=== PATIENT | female | born 1945 | race Hispanic/Latino ===

== ENCOUNTER 2017-10-18 20:50 | Inpatient (IN) | payer MEDICARE ==
[~2017-10-18] VITALS: Ht 144.8 cm; Wt 60.3 kg
[~2017-10-18 20:50] MED LIST: BENICAR20 MG PO; LEVOTHYROXINE75 MCG PO
[2017-10-18 21:47] LABS: BASOPHILS % 0.3 % (0.0-1.0); EOSINOPHILS # (AUTO) 0.1 (0.0-0.4); HEMATOCRIT 27.6 % (34.2-44.1); HEMOGLOBIN 9.3 g/dL (12.0-16.0); LYMPHOCYTES # (AUTO) 2.4 (1.0-3.2); LYMPHOCYTES % 34.7 % (18.0-39.1); MEAN CORPUSCULAR HEMOGLOBIN 31.2 pg (28-32); MEAN CORPUSCULAR HGB CONC 33.7 g/dL (31-35); MEAN CORPUSCULAR VOLUME 92.6 fL (81-99); MONOCYTES # (AUTO) 0.3 (0.2-0.8); MONOCYTES % 4.6 % (4.4-11.3); NEUTROPHILS % 59.3 % (38.7-80.0); PLATELET COUNT 276 x10e3/uL (140-360); RED BLOOD COUNT 2.98 x10e6/uL (3.6-5.1); RED CELL DISTRIBUTION WIDTH 13.9 % (11.7-14.4)
[2017-10-18 21:57] LABS: INR 1.13; PARTIAL THROMBOPLASTIN TIME 29.4 seconds (23.8-35.5); PROTHROMBIN TIME 13.6 seconds (11.9-14.5)
[2017-10-18 22:04] LABS: ALANINE AMINOTRANSFERASE 20 IU/L (0-55); ALBUMIN 3.5 g/dL (3.5-5.0); ALBUMIN/GLOBULIN RATIO 1.3 (0.8-2.0); ALKALINE PHOSPHATASE 75 IU/L (40-150); ANION GAP 11.6 mmol/L (8-16); BLOOD UREA NITROGEN 8 mg/dL (7-26); BUN/CREATININE RATIO 11 (6-25); CALCIUM 9.6 mg/dL (8.4-10.2); CARBON DIOXIDE 23 mmol/L (22-29); CHLORIDE 109 mmol/L (98-107); EST GLOMERULAR FILTRATION RATE > 60 ML/MIN (60-); GLUCOSE 147 mg/dL (74-118); POTASSIUM 3.6 mmol/L (3.5-5.1); SODIUM 140 mmol/L (136-145)
[2017-10-19] MEDS ORDERED: ONDANSETRON HCL INJ 2 MG/ML VIAL IV PRN
[2017-10-19 01:50] VITALS: BP 143/71
[2017-10-19] MEDS: SODIUM CHLORIDE 0.9% 1000ML 1,000 ML IV SCH ×3 (02:05→17:05)
[2017-10-19 04:00] VITALS: BP 131/61
[2017-10-19 06:16] LABS: HEMATOCRIT 24.3 % (34.2-44.1); HEMOGLOBIN 8.3 g/dL (12.0-16.0)
[2017-10-19 08:27] VITALS: BP 133/62
[2017-10-19] MEDS ORDERED: PANTOPRAZOLE 40 MG 10ML VIAL IV SCH (09:00)
[2017-10-19 11:49] LABS: HEMOGLOBIN 7.9 g/dL (12.0-16.0)
[2017-10-19 12:30] VITALS: BP 137/66
[2017-10-19 17:05] VITALS: BP 160/70
[2017-10-19 18:30] LABS: HEMATOCRIT 24.8 % (34.2-44.1); HEMOGLOBIN 8.5 g/dL (12.0-16.0)
[2017-10-19 20:00] VITALS: BP 146/67
[2017-10-20] VITALS (8 sets, daily range): BP systolic 122–167; BP diastolic 64–81
[2017-10-20 02:22] LABS: HEMOGLOBIN 7.6 g/dL (12.0-16.0)
[2017-10-20 06:02] LABS: BASOPHILS % 0.4 % (0.0-1.0); EOSINOPHILS # (AUTO) 0.1 (0.0-0.4); EOSINOPHILS % 2.6 % (0.0-6.0); HEMATOCRIT 23.1 % (34.2-44.1); HEMOGLOBIN 7.7 g/dL (12.0-16.0); LYMPHOCYTES # (AUTO) 2.1 (1.0-3.2); LYMPHOCYTES % 45.6 % (18.0-39.1); MEAN CORPUSCULAR HEMOGLOBIN 31.3 pg (28-32); MEAN CORPUSCULAR HGB CONC 33.3 g/dL (31-35); MEAN CORPUSCULAR VOLUME 93.9 fL (81-99); MONOCYTES # (AUTO) 0.3 (0.2-0.8); MONOCYTES % 5.8 % (4.4-11.3); NEUTROPHILS # (AUTO) 2.1 (2.1-6.9); NEUTROPHILS % 45.4 % (38.7-80.0); PLATELET COUNT 220 x10e3/uL (140-360); RED BLOOD COUNT 2.46 x10e6/uL (3.6-5.1); RED CELL DISTRIBUTION WIDTH 13.8 % (11.7-14.4)
[2017-10-20] MEDS: LEVOTHYROXINE SODIUM 75 MCG TAB PO SCH (06:05)
[2017-10-20] MEDS: SODIUM CHLORIDE 0.9% 1000ML 1,000 ML IV SCH ×2 (06:05→16:54)
[2017-10-20 06:40] LABS: ANION GAP 8.7 mmol/L (8-16); BLOOD UREA NITROGEN 5 mg/dL (7-26); BUN/CREATININE RATIO 8 (6-25); CALCIUM 8.3 mg/dL (8.4-10.2); CARBON DIOXIDE 26 mmol/L (22-29); CHLORIDE 112 mmol/L (98-107); CREATININE, SERUM 0.61 mg/dL (0.57-1.11); EST GLOMERULAR FILTRATION RATE > 60 ML/MIN (60-); GLUCOSE 93 mg/dL (74-118); POTASSIUM 3.7 mmol/L (3.5-5.1); SODIUM 143 mmol/L (136-145)
--- NOTE | 2017-10-20 16:52 | Diagnostic Imaging Report ---
Tagged-RBC GI Bleed Study Clinical information: 72-year-old female with rectal bleeding/blood in stool. Discussion: The patient's own red blood cells were labeled with 27.5 mCi of technetium-99m pertechnetate using the in vitro method (UltraTag). Dynamic images of the abdomen were obtained through 60 minutes. Distribution of tracer activity appears physiologic throughout the abdomen. No abnormal accumulation of tracer is seen within the gastrointestinal lumen. Impression: No scan evidence of active gastrointestinal bleeding at this time. Signed by: Dr. Lorrie Rivera M.D. on 10/20/2017 4:48 PM
[2017-10-20 17:49] LABS: BASOPHILS % 0.4 % (0.0-1.0); EOSINOPHILS # (AUTO) 0.1 (0.0-0.4); EOSINOPHILS % 1.3 % (0.0-6.0); HEMATOCRIT 25.1 % (34.2-44.1); HEMOGLOBIN 8.5 g/dL (12.0-16.0); LYMPHOCYTES # (AUTO) 2.4 (1.0-3.2); LYMPHOCYTES % 36.1 % (18.0-39.1); MEAN CORPUSCULAR HEMOGLOBIN 31.4 pg (28-32); MEAN CORPUSCULAR HGB CONC 33.9 g/dL (31-35); MEAN CORPUSCULAR VOLUME 92.6 fL (81-99); MONOCYTES # (AUTO) 0.2 (0.2-0.8); MONOCYTES % 3.1 % (4.4-11.3); NEUTROPHILS % 58.8 % (38.7-80.0); PLATELET COUNT 258 x10e3/uL (140-360); RED BLOOD COUNT 2.71 x10e6/uL (3.6-5.1); RED CELL DISTRIBUTION WIDTH 13.9 % (11.7-14.4)
[2017-10-20] MEDS ORDERED: PEG (High)/E-LYTE SOLN 4,000 ML BTL PO ONE (22:00)
[2017-10-21] VITALS: BP 157/67
[2017-10-21] MEDS: SODIUM CHLORIDE 0.9% 1000ML 1,000 ML IV SCH ×3 (00:56→18:22)
[2017-10-21 02:15] LABS: HEMATOCRIT 24.5 % (34.2-44.1); HEMOGLOBIN 8.4 g/dL (12.0-16.0)
[2017-10-21 04:00] VITALS: BP 155/60
[2017-10-21] MEDS: LEVOTHYROXINE SODIUM 75 MCG TAB PO SCH (05:22)
[2017-10-21 06:22] LABS: HEMATOCRIT 23.4 % (34.2-44.1); HEMOGLOBIN 7.9 g/dL (12.0-16.0)
[2017-10-21 07:57] VITALS: BP 131/78
[2017-10-21 11:59] VITALS: BP 149/72
[2017-10-21] MEDS ORDERED: HYOSCYAMINE SULFATE 0.5 MG/ML AMP ONE (16:04)
[2017-10-21] MEDS ORDERED: PROPOFOL IV EMULSION 10 MG/ML 50 ML VIAL ONE (16:04)
[2017-10-21] MEDS ORDERED: LIDOCAINE HCL 2% LOCAL INJ 5 ML SDV VIAL INJ ONE (16:04)
--- NOTE | 2017-10-21 17:10 | Operative Report ---
DATE OF PROCEDURE: October 21, 2017 REFERRING PHYSICIAN: Dr. Marshall. PROCEDURE PERFORMED: Colonoscopy. INDICATIONS FOR COLONOSCOPY: Recurrent rectal bleeding. MEDICATION: Patient was done under MAC. Please see anesthesiologist's note. PROCEDURE: With the patient in the left lateral decubitus position, the flexible fiberoptic Olympus colonoscope was inserted into the rectum with ease and advanced all the way to the cecum. The mucosa overlying the cecum appeared to be within normal limits. The previously hemoclipped polypectomy site appeared intact with the two hemoclips in good position. There was no active bleeding or stigmata of recent hemorrhage. Diverticular disease was noted to involve the ascending and some of the transverse colon, and there was no active bleeding. The left colon overall grossly appeared to be within normal limits. The scope was then retroflexed into the distal rectum and small internal hemorrhoids were noted, none of which was actively bleeding. The scope was then straightened out. The scope was subsequently withdrawn. Patient tolerated the procedure well. IMPRESSION: 1. Polypectomy site clean. Basically no evidence of active bleeding or stigmata of recent hemorrhage. 2. Diverticulosis. 3. Internal hemorrhoids. PLAN: Advance diet to a GI soft. Follow H\T\H. Job#: [id number] EV cc: BEN MARSHALL MD
[2017-10-21 20:00] VITALS: BP 119/63
[2017-10-21 20:41] LABS: HEMATOCRIT 23.9 % (34.2-44.1); HEMOGLOBIN 8.2 g/dL (12.0-16.0)
[2017-10-22] VITALS (7 sets, daily range): BP systolic 117–135; BP diastolic 56–73
[2017-10-22] MEDS: LEVOTHYROXINE SODIUM 75 MCG TAB PO SCH (05:46)
[2017-10-22 06:10] LABS: BASOPHILS % 0.3 % (0.0-1.0); EOSINOPHILS # (AUTO) 0.2 (0.0-0.4); EOSINOPHILS % 3.3 % (0.0-6.0); HEMATOCRIT 23.1 % (34.2-44.1); HEMOGLOBIN 7.7 g/dL (12.0-16.0); LYMPHOCYTES # (AUTO) 1.9 (1.0-3.2); LYMPHOCYTES % 30.9 % (18.0-39.1); MEAN CORPUSCULAR HEMOGLOBIN 31.3 pg (28-32); MEAN CORPUSCULAR HGB CONC 33.3 g/dL (31-35); MEAN CORPUSCULAR VOLUME 93.9 fL (81-99); MONOCYTES # (AUTO) 0.3 (0.2-0.8); MONOCYTES % 5.4 % (4.4-11.3); NEUTROPHILS # (AUTO) 3.6 (2.1-6.9); NEUTROPHILS % 59.8 % (38.7-80.0); PLATELET COUNT 258 x10e3/uL (140-360); RED BLOOD COUNT 2.46 x10e6/uL (3.6-5.1); RED CELL DISTRIBUTION WIDTH 14.1 % (11.7-14.4)
[2017-10-22 06:36] LABS: ANION GAP 9.5 mmol/L (8-16); BLOOD UREA NITROGEN 6 mg/dL (7-26); BUN/CREATININE RATIO 9 (6-25); CALCIUM 8.6 mg/dL (8.4-10.2); CARBON DIOXIDE 25 mmol/L (22-29); CHLORIDE 109 mmol/L (98-107); CREATININE, SERUM 0.65 mg/dL (0.57-1.11); EST GLOMERULAR FILTRATION RATE > 60 ML/MIN (60-); GLUCOSE 93 mg/dL (74-118); POTASSIUM 3.5 mmol/L (3.5-5.1); SODIUM 140 mmol/L (136-145)
[2017-10-22] MEDS: SODIUM CHLORIDE 0.9% 1000ML 1,000 ML IV SCH (06:58)
[2017-10-22] MEDS: OLMESARTAN 20 MG TAB PO SCH (08:42)
[2017-10-23] VITALS: BP 110/59
[2017-10-23 00:12] LABS: BASOPHILS % 0.3 % (0.0-1.0); EOSINOPHILS # (AUTO) 0.1 (0.0-0.4); EOSINOPHILS % 2.3 % (0.0-6.0); HEMATOCRIT 23.4 % (34.2-44.1); LYMPHOCYTES # (AUTO) 2.3 (1.0-3.2); LYMPHOCYTES % 37.7 % (18.0-39.1); MEAN CORPUSCULAR HEMOGLOBIN 31.3 pg (28-32); MEAN CORPUSCULAR HGB CONC 34.2 g/dL (31-35); MEAN CORPUSCULAR VOLUME 91.4 fL (81-99); MONOCYTES # (AUTO) 0.3 (0.2-0.8); MONOCYTES % 5.1 % (4.4-11.3); NEUTROPHILS # (AUTO) 3.3 (2.1-6.9); NEUTROPHILS % 54.4 % (38.7-80.0); PLATELET COUNT 275 x10e3/uL (140-360); RED BLOOD COUNT 2.56 x10e6/uL (3.6-5.1); RED CELL DISTRIBUTION WIDTH 14.2 % (11.7-14.4)
[2017-10-23 04:00] VITALS: BP 139/65
[2017-10-23] MEDS: LEVOTHYROXINE SODIUM 75 MCG TAB PO SCH (06:01)
[2017-10-23 08:07] VITALS: BP 136/70
[2017-10-23 09:10] VITALS: BP 141/69
[2017-10-23] MEDS: OLMESARTAN 20 MG TAB PO SCH (09:10)
[2017-10-23 11:59] VITALS: BP 141/69
--- NOTE | 2017-10-23 13:41 | Discharge Summary ---
PRIMARY CARE PHYSICIAN: Dr. Melissa Chaney. FINAL DIAGNOSIS: Presumed diverticular bleed. SECONDARY DIAGNOSES 1. Hypertension. 2. Hypothyroidism. TRAINING INSTRUCTOR: Dr. Looney, GI. PROCEDURES/STUDIES PERFORMED: Bleeding scan which was negative. Colonoscopy which a negative as well. HISTORY: Per H\T\P. HOSPITAL COURSE: The patient was admitted. Her hemoglobin did drop a little bit, however, remained stable. At the time of discharge, her hemoglobin is 8. Bleeding scan was done which was negative, and subsequently, colonoscopy was done. No bleeding at the site of the recent polypectomy sites. Therefore, presumed this is again another diverticular bleed. The patient was watched for one extra day. No rectal bleeding, tolerating soft diet, has had normal BM. Therefore, the patient was deemed stable for discharge. The patient was seen and examined today. Took 32 minutes total to discharge this patient. I have answered all the questions from the patient and also the daughter at the bedside. CONDITION ON DISCHARGE: Stable. DISCHARGE MEDICATIONS: Please see medication reconciliation form. BEN MARSHALL M.D. Job#: [id number] GH cc:MELISSA CHANEY MD
== END 2017-10-23 14:06 | disposition home or self-care (01) | DRG 379 ==
LOC: ER 20:50 → ERHOLD 10-19 00:13 → MED/SURG3 10-19 01:34
PROVIDERS: ADMIT Internal Medicine; ATTEND Internal Medicine
PROC: 0DBL8ZX Excision of Transverse Colon, Via Natural or Artificial Opening Endoscopic, Diagnostic (ICD-10-PCS; 2017-10-21)
PROC: 0DBK8ZX Excision of Ascending Colon, Via Natural or Artificial Opening Endoscopic, Diagnostic (ICD-10-PCS; principal; 2017-10-21 16:00)
DX: K57.31 Diverticulosis of large intestine without perforation or abscess with bleeding (principal); D12.2 Benign neoplasm of ascending colon; D12.3 Benign neoplasm of transverse colon; E03.9 Hypothyroidism, unspecified; D64.9 Anemia, unspecified
CPT/HCPCS: 36415; 45378; 78278; 80048; 80053; 85014; 85018; 85025; 85610; 85730; 86850; 86900; 99284; A9512; J1980; J2001; J7030

== ENCOUNTER → 2018-02-14 | Day surgery (SDC) | payer MEDICARE ==
[2018-02-11 11:10] LABS: BASOPHILS # (AUTO) 0.1 (0.0-0.1); BASOPHILS % 1.2 % (0.0-1.0); EOSINOPHILS # (AUTO) 0.1 (0.0-0.4); EOSINOPHILS % 1.2 % (0.0-6.0); HEMATOCRIT 37.3 % (34.2-44.1); HEMOGLOBIN 11.9 g/dL (12.0-16.0); LYMPHOCYTES # (AUTO) 2.2 (1.0-3.2); LYMPHOCYTES % 32.2 % (18.0-39.1); MEAN CORPUSCULAR HEMOGLOBIN 26.2 pg (28-32); MEAN CORPUSCULAR HGB CONC 31.9 g/dL (31-35); MEAN CORPUSCULAR VOLUME 82.2 fL (81-99); MONOCYTES # (AUTO) 0.4 (0.2-0.8); MONOCYTES % 5.9 % (4.4-11.3); NEUTROPHILS % 59.2 % (38.7-80.0); PLATELET COUNT 334 x10e3/uL (140-360); RED BLOOD COUNT 4.54 x10e6/uL (3.6-5.1); RED CELL DISTRIBUTION WIDTH 16.9 % (11.7-14.4)
--- NOTE | 2018-02-11 11:11 | Diagnostic Imaging Report ---
EXAMINATION: PA and lateral views of the chest. COMPARISON: None CLINICAL HISTORY: Preoperative, hernia DISCUSSION: Lines/tubes: None. Lungs: The lungs are well inflated and clear. No pneumonia or pulmonary edema. Pleura: No pleural effusion or pneumothorax. Heart and mediastinum: The cardiomediastinal silhouette is normal. Bones and soft tissues: No acute bony abnormalities. IMPRESSION: No acute cardiopulmonary abnormalities. Signed by: Dr. Duran Rivero M.D. on 02/11/2018 11:08 AM
[2018-02-11 11:34] LABS: ANION GAP 13.4 mmol/L (8-16); BLOOD UREA NITROGEN 13 mg/dL (7-26); BUN/CREATININE RATIO 19 (6-25); CALCIUM 10.1 mg/dL (8.4-10.2); CARBON DIOXIDE 26 mmol/L (22-29); CHLORIDE 107 mmol/L (98-107); CREATININE, SERUM 0.69 mg/dL (0.57-1.11); EST GLOMERULAR FILTRATION RATE > 60 ML/MIN (60-); GLUCOSE 100 mg/dL (74-118); POTASSIUM 4.4 mmol/L (3.5-5.1); SODIUM 142 mmol/L (136-145)
[~2018-02-14] MED LIST changes: +BUPIVACAINE 0.25%/EPI 30ML SDV INJ ONE; +CALCIUM ACETAT667 MG PO; +CEFAZOLIN SOD 1 GM VIAL ONE; +DEXAMETHASONE SOD PHOS INJ 4 MG/ML VIAL ONE; +FENTANYL CITRATE/PF 100MCG/2 ML INJ ONE; +GLYCOPYRROLATE INJ 1MG/ 5 ML SYR ONE; +LIDOCAINE HCL 2% LOCAL INJ 5 ML SDV VIAL INJ ONE; +MIDAZOLAM HCL 2 MG/2 ML VIAL ONE; +ONDANSETRON HCL INJ 2 MG/ML VIAL ONE; +PROPOFOL IV EMULSION 10 MG/ML 20 ML VIAL ONE; +ROCURONIUM BROMIDE 10 MG/ML 5ML VIAL ONE; +SEVOFLURANE INHAL SOLN 250 ML PEN BTL ONE
[2018-02-14 10:15] VITALS: BP 149/76
--- NOTE | 2018-02-14 10:53 | Operative Report ---
DATE OF PROCEDURE: February 14, 2018 PREOPERATIVE DIAGNOSIS: Ventral hernia. POSTOPERATIVE DIAGNOSIS: Ventral hernia. OPERATION PERFORMED: Repair of incarcerated ventral hernia with mesh. ANESTHESIA: General. COMPLICATIONS: None. ESTIMATED BLOOD LOSS: Minimal. DESCRIPTION OF PROCEDURE: With the patient lying in bed in the supine position under good general endotracheal anesthesia, the abdomen was prepped with Betadine solution and draped in the usual manner. An upper midline incision was made. It was carried down through the subcutaneous tissue, and immediately a large ventral hernia sac was encountered, which was slowly and carefully all the way down to its neck. The fascia was then cleared all the way around. The hernia sac was then opened, and some of the contents were reduced back to the intra-abdominal cavity. The excess of the hernia sac was then resected. All bleeding points were either electrocoagulated or ligated with 2-0 Vicryl. After this was done, the area was examined. There was some weakness of the midline fascia, so we decided that mesh would be needed. A medium sized Ventralex patch was then placed through the hernia sac and deployed without any difficulty. The mesh was then anchored using interrupted sutures of [address] the way around. The defect was then closed at the midline transversely using interrupted sutures of 0 Ethibond anchoring the mesh on the way out. This gave us a satisfactory closure without any tension. The whole area was thoroughly irrigated. Perfect hemostasis was ascertained. All layers were infiltrated on the way out with a solution of 0.25% Marcaine. Subcutaneous tissue was approximated with 3-0 Vicryl and the skin was closed with clips. A dressing was applied. The sponge, lap and needle count was correct. The patient tolerated the procedure well, and returned to the recovery room in stable condition. Job#: [id number] [place]
--- OUTSIDE RECORDS SUMMARY | 2018-02-15 14:11 | XMS REPORT | Continuity of Care Document ---
Author Author [facility] Interface Address Unknown Phone Unavailable Problems Problem Status Onset Date Classification Date Reported Comments Source CHEST PAIN, VERTIGO Active 08/25/2014 [facility] CHEST PAIN/DIZZY Active 08/25/2014 [facility] HTN (<span ID="[id number]">Confirmed</span>) Resolved Problem 01/26/2016 [facility] Hypothyroidism Resolved Problem 01/26/2016 [facility] RT SHOULDER Active [facility] Medications Medication Details Route Status Patient Instructions Ordering Provider Order Date Source Lisinopril 5 mg, 1 tab, Route: PO, Drug form: TAB, Daily, Dosing Weight 61.364, kg, Start date: 08/26/14 9:00:00, Duration: 30 day, Stop date: 09/24/14 9:00:00Notes: (Same as: Prinivil, Zestril) No Longer Active 08/26/2014 [facility] Aspirin 325 MG Enteric Coated Tablet 325 mg, 1 tab, Route: PO, Drug form: ECTAB, Daily, Dosing Weight 61.364, kg, Start date: 08/26/14 9:00:00, Duration: 30 day, Stop date: 09/24/14 9:00:00Notes: (Do Not Crush) Do not crush or chew. No Longer Active 08/26/2014 [facility] Saline Flush 0.9% 10 ml, Route: IVP, Drug Form: INJ, Dosing Weight 61.364, kg, Q12H, Start date: 08/25/14 21:00:00, Duration: 30 day, Stop date: 09/24/14 9:00:00Notes: (Same as: BD Posiflush) No Longer Active 08/26/2014 [facility] Hydrochlorothiazide 12.5 MG / Olmesartan medoxomil 20 MG Oral Tablet [Benicar HCT 20/12.5] 1 tab, PO, Daily, # 30 tab, 0 Refill(s) Active 08/25/2014 [facility] levothyroxine 75 mcg (0.075 mg) oral tablet 75 microgram=1 tab, PO, Daily, # 30 tab, 0 Refill(s) Active 08/25/2014 [facility] Saline Flush 0.9% 10 ml, Route: IVP, Drug Form: INJ, Dosing Weight 61.364, kg, PRN, PRN Line Flush, Start date: 08/25/14 18:15:00, Duration: 30 day, Stop date: 09/24/14 18:14:00Notes: (Same as: BD Posiflush) No Longer Active 08/25/2014 [facility] Ondansetron 4 mg, 1 tab, Route: PO, Drug form: TAB, Q8H, Dosing Weight 61.364, kg, PRN Nausea & Vomiting, Start date: 08/25/14 18:15:00, Duration: 30 day, Stop date: 09/24/14 18:14:00Notes: (Same as: Zofran) No Longer Active 08/25/2014 [facility] Morphine 2 mg, 1 mL, Route: IVP, Drug form: INJ, Q15Min, Dosing Weight 61.364, kg, PRN Chest Pain, Start date: 08/25/14 18:15:00, Duration: 2 doses or times, Stop date: Limited # of timesNotes: (Same as:MORPh ine Sulfate) No Longer Active 08/25/2014 [facility] Nitroglycerin 0.4 mg, 1 tab, Route: SL, Drug form: TAB, Q5Min, Dosing Weight 61.364, kg, PRN Chest Pain, Start date: 08/25/14 18:15:00, Duration: 3 doses or times, Stop date: Limited # of timesNotes: (Same as:Nitroqu ick, Nitrostat) "Do Not Crush" Sublingual tablet No Longer Active 08/25/2014 [facility] Prednisone 20 mg, Route: PO, Drug form: TAB, ONCE, Dosing Weight 61.364, kg, Priority: STAT, Start date: 08/25/14 10:57:00, Stop date: 08/25/14 10:57:00 Inactive 08/25/2014 [facility] Meclizine 25 mg, Route: PO, Drug form: TAB, ONCE, Dosing Weight 61.364, kg, Priority: STAT, Start date: 08/25/14 10:56:00, Stop date: 08/25/14 10:56:00 Inactive 08/25/2014 [facility] Aspirin 324 mg, Route: PO, ONCE, Dosing Weight 61.364, kg, Priority: STAT, Start date: 08/25/14 10:56:00, Stop date: 08/25/14 10:56:00 Inactive 08/25/2014 [facility] Saline Flush 0.9% 10 mL, Route: IVP, Drug Form: INJ, Dosing Weight 61.364, kg, PRN, PRN Line Flush, Start date: 08/25/14 10:56:00, Duration: 30 day, Stop date: 09/24/14 10:55:00Notes: Same as: BD Posiflush Sterile No Longer Active 08/25/2014 [facility] Allergies, Adverse Reactions, Alerts Substance Category Reaction Severity Reaction type Status Date Reported Comments Source Immunizations Immunization Date Given Site Status Last Updated Comments Source Results Order Name Results Value Reference Range Date Interpretation Comments Source CARDIAC ENZYMES Troponin-I null 0.00 - 0.40 08/25/2014 [facility] CARDIAC ENZYMES CK MB 0.6 ng/mL 0.5 - 3.6 08/25/2014 [facility] URINE AND STOOL UA Urobilinogen <=1.0 mg/dL 0.1 - 1.0 08/25/2014 [facility] URINE AND STOOL UA Color Colorless 08/25/2014 [facility] URINE AND STOOL UA Bacteria Occasional /HPF None Seen /HPF 08/25/2014 [facility] URINE AND STOOL UA RBC null 0 - 2 08/25/2014 [facility] URINE AND STOOL UA WBC 1 /HPF 0 - 5 08/25/2014 [facility] URINE AND STOOL UA Sq Epi Occasional /LPF Few /LPF 08/25/2014 [facility] URINE AND STOOL UA pH 6.0 5.0 - 8.0 08/25/2014 [facility] URINE AND STOOL UA Spec Grav 1.003 <=1.030 08/25/2014 [facility] URINE AND STOOL UA Turbidity Clear (08/25/14 11:21 AM) Clear 08/25/2014 [facility] URINE AND STOOL UA Ketones Negative mg/dL Negative mg/dL 08/25/2014 [facility] URINE AND STOOL UA Glucose Negative mg/dL Negative mg/dL 08/25/2014 [facility] URINE AND STOOL UA Protein Negative mg/dL Negative mg/dL 08/25/2014 [facility] URINE AND STOOL UA Leuk Est Trace *ABN* (08/25/14 11:21 AM) Negative 08/25/2014 [facility] URINE AND STOOL UA Nitrite Negative (08/25/14 11:21 AM) Negative 08/25/2014 [facility] URINE AND STOOL UA Blood Negative (08/25/14 11:21 AM) Negative 08/25/2014 [facility] URINE AND STOOL UA Bili Negative *NA* (08/25/14 11:21 AM) Negative 08/25/2014 [facility] CARDIAC ENZYMES CK MB Index 1.5 0.0 - 2.5 08/25/2014 [facility] CARDIAC ENZYMES BNP 46 pg/mL <=100 pg/mL 08/25/2014 3Interpretive Data: Elevated results are in line with increasing severity of congestive heart failure. Minor elevations between 100 and 300 may be seen with Myocardial Ischemia, Sodium retaining drugs, and compensated/treated heart failure. [facility] CARDIAC ENZYMES Troponin-I null 0.00 - 0.40 08/25/2014 [facility] CARDIAC ENZYMES CK MB 1.2 ng/mL 0.5 - 3.6 08/25/2014 [facility] CARDIAC ENZYMES Total CK 78 unit/L 12 - 191 08/25/2014 [facility] CHEM PANEL Phosphorus 1.9 mg/dL 2.5 - 4.5 08/25/2014 [facility] CHEM PANEL Magnesium Lvl 2.4 mg/dL 1.8 - 2.4 08/25/2014 [facility] CHEM PANEL eGFR 88 mL/min/1.73m2 08/25/2014 1Result Comment: The eGFR is calculated using the CKD-EPI formula. In most young, healthy individuals the eGFR will be >90 mL/min/1.73m2. The eGFR declines with age. An eGFR of 60-89 may be normal in some populations, particularly the elderly, for whom the CKD-EPI formula has not been extensively validated. Use of the eGFR is not recommended in the following populations: Individuals with unstable creatinine concentrations, including patients and those with serious co-morbid conditions. Patients with extremes in muscle mass or diet. The data above are obtained from the National Kidney Disease Education Program (NKDEP) which additionally recommends that when the eGFR is used in patients with extremes of body mass index for purposes of drug dosing, the eGFR should be multiplied by the estimated BMI. [facility] CHEM PANEL A/G Ratio 1.0 0.7 - 1.6 08/25/2014 [facility] CHEM PANEL Calcium Lvl 9.4 mg/dL 8.5 - 10.5 08/25/2014 [facility] CHEM PANEL Glucose Lvl 101 mg/dL 70 - 99 08/25/2014 2Interpretive Data: Adult reference range values reflect the clinical guidelines of the [place] [employer]. [facility] CHEM PANEL BUN 14 mg/dL 7 - 22 08/25/2014 [facility] CHEM PANEL Creatinine Lvl 0.7 mg/dL 0.5 - 1.4 08/25/2014 [facility] CHEM PANEL AST 20 unit/L 0 - 37 08/25/2014 [facility] CHEM PANEL Total Protein 7.8 g/dL 6.4 - 8.4 08/25/2014 [facility] CHEM PANEL Albumin Lvl 3.8 g/dL 3.5 - 5.0 08/25/2014 [facility] CHEM PANEL ALT 27 unit/L 0 - 65 08/25/2014 [facility] CHEM PANEL Bili Total 1.2 mg/dL 0.2 - 1.3 08/25/2014 [facility] CHEM PANEL Alk Phos 100 unit/L 39 - 136 08/25/2014 [facility] CHEM PANEL Globulin 4.0 g/dL 2.0 - 4.0 08/25/2014 [facility] CHEM PANEL CO2 27 meq/L 24 - 32 08/25/2014 [facility] CHEM PANEL AGAP 8.8 meq/L 10.0 - 20.0 08/25/2014 [facility] CHEM PANEL B/C Ratio 20 6 - 25 08/25/2014 [facility] CHEM PANEL Chloride Lvl 104 meq/L 95 - 109 08/25/2014 [facility] CHEM PANEL Potassium Lvl 3.8 meq/L 3.5 - 5.1 08/25/2014 [facility] CHEM PANEL Sodium Lvl 136 meq/L 135 - 145 08/25/2014 [facility] HEMATOLOGY Monocytes # 0.4 K/CMM 0.0 - 0.8 08/25/2014 [facility] HEMATOLOGY Basophils # 0.1 K/CMM 0.0 - 0.2 08/25/2014 [facility] HEMATOLOGY Eosinophils # 0.1 K/CMM 0.0 - 0.5 08/25/2014 [facility] HEMATOLOGY Segs-Bands # 6.3 K/CMM 1.5 - 8.1 08/25/2014 [facility] HEMATOLOGY Lymphocytes # 1.9 K/CMM 1.0 - 5.5 08/25/2014 [facility] Lymphocytes 21.4 % 20.0 - 40.0 08/25/2014 [facility] HEMATOLOGY Monocytes 4.9 % 2.0 - 12.0 08/25/2014 [facility] HEMATOLOGY Basophils 0.9 % 0.0 - 1.0 08/25/2014 [facility] HEMATOLOGY Eosinophils 0.7 % 0.0 - 4.0 08/25/2014 [facility] HEMATOLOGY Segs 72.1 % 45.0 - 75.0 08/25/2014 [facility] INR 0.96 0.85 - 1.17 08/25/2014 4Interpretive Data: RECOMMENDED RANGES FOR PROTIME INR: 2.0-3.0 for most medical and surgical thromboembolic states. 2.5-3.5 for artificial heart valves and recurrent embolism. INR SHOULD BE USED ONLY FOR PATIENTS ON STABLE ANTICOAGULANT THERAPY. [facility] PTT 34.8 s 22.9 - 35.8 08/25/2014 5Interpretive Data: Heparin Therapeutic Range: 57 - 92 Seconds [facility] PT 12.8 s 12.0 - 14.7 08/25/2014 [facility] Platelet 232 K/CMM 133 - 450 08/25/2014 [facility] RDW 13.8 % 11.5 - 14.5 08/25/2014 [facility] MPV 9.3 fL 7.4 - 10.4 08/25/2014 [facility] MCHC 34.1 g/dL 32.0 - 36.0 08/25/2014 [facility] MCH 32.1 pg 27.0 - 31.0 08/25/2014 [facility] Hgb 14.9 g/dL 12.0 - 16.0 08/25/2014 [facility] RBC 4.65 M/CMM 4.20 - 5.40 08/25/2014 [facility] MCV 94.1 fL 80.0 - 98.0 08/25/2014 [facility] HEMATOLOGY Hct 43.7 % 36.0 - 48.0 08/25/2014 [facility] WBC 8.8 K/CMM 3.7 - 10.4 08/25/2014 [facility] Vital Signs Vital Sign Value Date Comments Source Temperature Oral (F) 98 F 08/25/2014 [facility] Systolic (mm Hg) 140 08/25/2014 [facility] Diastolic (mm Hg) 77 08/25/2014 [facility] Respitory Rate 14 08/25/2014 [facility] Systolic (mm Hg) 158 08/25/2014 [facility] Diastolic (mm Hg) 71 08/25/2014 [facility] Respitory Rate 17 08/25/2014 [facility] Systolic (mm Hg) 148 08/25/2014 [facility] Diastolic (mm Hg) 73 08/25/2014 [facility] Respitory Rate 15 08/25/2014 [facility] Weight 61.364 08/25/2014 [facility] BMI Calculated 26.42 08/25/2014 [facility] Height 152.4 cm 08/25/2014 [facility] Temperature Oral (F) 97.8 F 08/25/2014 [facility] Heart Rate 74 08/25/2014 [facility] Encounters Location Location Details Encounter Type Encounter Number Reason For Visit Attending Provider ADM Date DC Date Status Source [facility] OBS Observation Patient [id number] Abhishek New 08/25/2014 08/25/2014 [facility] [place] [facility] Patients [id number] Imtiaz Mckeon 12/25/2015 01/24/2016 [facility] [place] Procedures Procedure Code Date Perfomer Comments Source
--- OUTSIDE RECORDS SUMMARY | 2018-02-15 14:11 | XMS REPORT | Clinical Summary ---
Author Author [facility] Address Unknown Phone Unavailable Care Team Providers Care Hair Worker Name Role Phone Tj Spence MD PCP Allergies Active Allergy Reactions Severity Noted Date Comments Penicillins 08/17/2017 Current Medications Prescription Sig. Disp. Refills Start End Date Status Date meclizine (ANTIVERT) 25 Take 25 mg by mouth 3 Active mg tablet (three) times a day as needed for dizziness. levothyroxine (SYNTHROID, Take 75 mcg by mouth Active LEVOXYL) 75 mcg tablet every morning. olmesartan (BENICAR) 20 Take 1 tablet (20 mg 90 tablet 3 08/18/19 08/18/19 Active MG tablet total) by mouth daily. 18 19 olmesartan-hydrochlorothi Take 1 tablet by mouth 08/18/19 Discontin azide (BENICAR HCT) daily. 18 ued 20-12.5 mg per tablet Active Problems Problem Noted Date LBBB (left bundle branch block) 08/17/2017 Dizziness 08/17/2017 Essential hypertension 08/17/2017 Screening for heart disease 08/17/2017 Hypothyroid 08/17/2017 Encounters Date Type Specialty Care Team Description 08/18/2017 Orders Only Cardiology Minh Jack MD 08/17/2017 Office Visit Cardiology Minh Jack MD LBBB (left bundle branch block) (Primary Dx); Essential hypertension; Dizziness; Screening for heart disease; Hypothyroidism, unspecified type 08/17/2017 Ancillary Cardiology Minh Jack MD Bruit; Orders Dizziness; Hypertension, unspecified type 08/17/2017 Ancillary Procedural Cardiology Minh Jack MD Hypertension, unspecified Orders type; LBBB (left bundle branch block) 08/16/2017 Orders Only Cardiology Emma Montano [place] (Primary Dx); Jessie, RN Dizziness 08/16/2017 Ancillary Procedural Cardiology Minh Jack MD Hypertension, unspecified Orders type; LBBB (left bundle branch block); Cardiac risk counseling 08/12/2017 Orders Only Cardiology Jeremiah Coon Jr., MD 08/10/2017 Transcribe Procedural Cardiology Minh Jack MD Hypertension, unspecified Orders type (Primary Dx) after 02/13/2017 Family History Relation Name Status Comments Father Mother Social History Tobacco Use Types Packs/Day Years Used Date Never Smoker Smokeless Tobacco: Never Used Alcohol Use Drinks/Week oz/Week Comments No Sex Assigned at Date Recorded Not on file Last Filed Vital Signs Vital Sign Reading Time Taken Blood Pressure 141/85 08/17/2017 8:59 AM CDT Pulse 65 08/17/2017 8:59 AM CDT Temperature - - Respiratory Rate - - Oxygen Saturation - - Inhaled Oxygen - - Concentration Weight 68 kg (150 lb) 08/17/2017 8:59 AM CDT Height 152.4 cm (5') 08/17/2017 8:59 AM CDT Body Mass Index 29.29 08/17/2017 8:59 AM CDT Plan of Treatment Health Maintenance Due Date Last Done Comments BREAST CANCER SCREENING 1994 COLON CANCER SCREENING 1994 SHINGRIX VACCINE (#1) 1994 ZOSTER VACCINE 2004 PNEUMOCOCCAL 2009 POLYSACCHARIDE VACCINE AGE 65 AND OVER PNEUMOCOCCAL-13 2009 INFLUENZA VACCINE 12/01/2017 Procedures Procedure Name Priority Date/Time Associated Diagnosis Comments NM MYOCARDIAL PERFUSION Routine 08/17/2017 Hypertension, unspecified Results for this STRESS REST 1 DAY 12:39 PM CDT type procedure are in the LBBB (left bundle branch results section. block) Cardiac risk counseling CV STRESS TEST NUCLEAR Routine 08/17/2017 Hypertension, unspecified Results for this CARDIO 12:39 PM CDT type procedure are in the LBBB (left bundle branch results section. block) Cardiac risk counseling US CAROTID DUPLEX Routine 08/17/2017 Bruit Results for this BILATERAL 11:46 AM CDT Dizziness procedure are in the Hypertension, unspecified results section. type ECHOCARDIOGRAM 2D Routine 08/17/2017 Hypertension, unspecified Results for this COMPLETE W MMODE SPECTRAL 8:54 AM CDT type procedure are in the COLOR DOPPLER (56104) LBBB (left bundle branch results section. block) CT HEART SCAN SCREEN Routine 08/17/2017 12:00 AM CDT after 02/13/2017 Results * Cv exercise treadmill stress (no imaging) (08/17/2017 12:39 PM) Resting HR 68 [facility] Resting BP 141 [facility] Peak MET Achieved 1.0 [facility] Protocol Name JAIR [facility] Time in Exercise Phase 00:01:00 [facility] Max Systolic BP 144 [facility] Max Diastolic BP 61 [facility] Max Heart Rate 90 [facility] Max Predicted Heart Rate 147 [facility] Target HR Formula (220 - Age)*100% [facility] M[facility] Stress Test Impression Waveform interpreted in report H MUSE associated with image study. No interpretation is provided as part of this Stress ECG report.--Electronically Signed By Guero AWAN, Minh Roy ([id number]), online content editor Megan Samuels ([id number]) on 08/17/2017 9:33:40 AM Target HR 124.95 bpm [facility] Performing Organization Address [facility] Phone Number [facility] M[facility] [address] [place] [address] * Oh myocardial perfusion (08/17/2017 12:39 PM) Target HR 124.95 bpm [facility] Resting HR 69 BPM [facility] Resting BP 141/85 mmHg [facility] Percent HR 72.03 % [facility] Post peak HR 90 bpm [facility] Post peak BP 144/61 mmHg [facility] Narrative Performed At [facility] Normal myocardial perfusion: The defect is mild in severity, small in size, located at the mid anteroseptal and basal anteroseptal segment(s) of the left ventricle, and is non-reversible (fixed). This is consistent with LBBB artifact. Normal left ventricular systolic function. All segments of left ventricle demonstrated normal wall motion, normal wall thickness. LVEF= 65% This study result indicates a low risk of cardiac , or nonfatal infarction, over the ensuing year. Compared to previous study performed on 11/05/2010, perfusion shows no change. LV function is essentially unchanged. Performing Organization Address [facility] Phone Number [facility] [id number] [place] [address] * carotid duplex (08/17/2017 11:46 AM) L CCA Prox 12.13 cm/s cm/s L CCA Prox 78.28 cm/s cm/s L ICA Prox 5.08 cm/s cm/s L ICA Prox 37.61 cm/s cm/s R ICA Prox 14.64 cm/s cm/s R ICA Prox 49.25 cm/s cm/s L ICA/CCA Ratio 0.79 cm/s R ICA/CCA Ratio 1.28 cm/s L CCA Max 78.28 cm/s cm/s R CCA Max 69.02 cm/s cm/s L ICA Max 61.53 cm/s cm/s R ICA Max 88.51 cm/s cm/s R CCA Prox 13.80 cm/s cm/s R CCA Prox 69.02 cm/s cm/s R ICA Dist 29.65 cm/s cm/s R ICA Mid 33.27 cm/s cm/s L ICA Dist 15.52 cm/s cm/s L ICA DIST 49.89 cm/s cm/s R CCA Dist 21.03 cm/s cm/s R CCA Dist 56.53 cm/s cm/s L CCA Dist 10.68 cm/s cm/s L CCA Dist 49.13 cm/s cm/s R ECA Prox 67.56 cm/s cm/s L ICA Mid 17.18 cm/s cm/s L ICA Mid 61.53 cm/s cm/s R ICA Dist 85.90 cm/s cm/s R ICA Mid 88.51 cm/s cm/s L Sub Art 137.82 cm/s cm/s R Sub Art 140.66 cm/s cm/s L Vert Art 50.20 cm/s cm/s R Vert Art 73.62 cm/s cm/s BSA Trinh 0.00 m2 Lt CCA Prox RI 84.51 Lt CCA Prox SD 645.45 Lt ICA Prox RI 86.49 cm/s Lt ICA Prox SD 740.00 Rt ICA Prox RI 70.27 cm/s Rt ICA Prox SD 336.36 cm/s Rt CCA Prox RI 80.00 Rt CCA Prox SD 500.00 Lt CCA Dist SD Ratio 460.00 Lt ICA Dist SD Ratio 321.43 Rt CCA Dist SD Ratio 268.75 RT ICA Dist SD Ratio 289.66 cm/s Rt ICA Mid SD 266.00 cm/s RT CCA DIST RI 62.79 cm/s RT CCA PROX SD RATIO 500.00 cm/s LT IC MID EDV 17.18 cm/s Lt ICA MID PSV 61.53 cm/s Rt ICA MID PSV 88.51 cm/s Lt IC/CC 78.60 cm/s Lt CCA Distal RI 78.26 Lt ECA PSV 45.74 cm/s Lt ICA Distal RI 68.89 Lt ICA Mid RI 72.07 Lt ICA Mid SD Ratio 358.06 Rt ICA Distal EDV 29.65 cm/s Rt ICA Distal RI 65.48 Rt ICA Mid RI 62.41 Rt Vertebral Artery RI 73.62 Narrative Performed At No evidence of hemodynamically significant atherosclerosis involving the common, internal and external carotid arteries. Bilateral antegrade vertebral artery flow. No evidence of hemodynamically significant atherosclerosis involving the subclavian arteries. * Echocardiogram complete w contrast and 3D if needed (08/17/2017 8:54 AM) Velocity Ratio (V1/V2) 0.83 m/s [facility] IVS,d 1.28 (A) 0.6 - 1.2 cm [facility] EF 46.90 % [facility] LVPWD,d 1.23 cm [facility] AoV Mean PG 4.00 mmHg [facility] AV LVOT peak gradient 4.48 mmHg [facility] MV valve area p 1/2 3.79 cm2 [facility] method PV Pk Grad 4.74 mmHg [facility] E/A ratio 0.84 [facility] E wave decelartion time 200.00 msec [facility] LVOT Diam,S 1.92 cm [facility] LVOT area 2.89 cm2 [facility] LVOT Vmax 1.06 m/s [facility] LVOT VTI 0.22 m [facility] AoV Peak PG 6.50 mmHg [facility] PV Mean Grad 2.10 mmHg [facility] MV Peak E Elliot 0.61 m/s [facility] MV stenosis pressure 1/2 58.00 ms [facility] time MV Peak A Elliot 0.73 m/s [facility] BSA 1.58 m2 [facility] AoV Area, Vmax 2.40 cm2 [facility] AoV Area, VTI 2.24 cm2 [facility] AoV Vmax 1.28 m/s [facility] BSA Trinh 1.65 m2 [facility] BSA [place] 1.63 m2 [facility] IVS/LVPW,2D 1.04 [facility] LV,d 3.74 cm [facility] LV,s 2.88 cm [facility] PV VMAX 1.09 m/s [facility] PV VTI 0.20 m [facility] RVSP (TR) 32.47 mmHg [facility] TR Vpeak 2.37 mm/s [facility] BMI 26.37 kg/m2 [facility] MV E A ratio 0.83 mmHg [facility] RA pressure 10.00 mmHg [facility] TR pk grad 22.47 mmHg [facility] AoV area i VTI BSA [place] 1.42 cm2/m2 [facility] PV Vmn 0.68 [facility] RVSP 32.47 mmHg [facility] Ao Root,s,2D 3.06 cm [facility] LV CO 1.76 l/min [facility] LV CI 1.11 l/min/m2 [facility] LV SYS VOL 31.67 ml [facility] LV GRISSOM VOL 59.64 ml [facility] LV SI Teich 2D 17.71 ml/m2 [facility] LV SV Teich 2D 27.97 ml [facility] LV Vol s Teich PSAX 31.67 ml [facility] LVOT CI 2.10 l/min/m2 [facility] LVOT CO 3.32 l/min [facility] LVOT SI 39.72 ml/m2 [facility] AoV Vmn 0.97 [facility] LV FS Cube 2D 22.99 [facility] LV FS Teich 2D 22.99 [facility] AoV VTI 0.28 m [facility] LV EF,2D 54.34 % [facility] MV AE ratio 1.21 [facility] LVOT Vmn 0.79 [facility] Pt Size 152.40 [facility] Pt Wt 61.24 [facility] Aov area Vmn 2.35 cm2 [facility] LA Vol d MOD A4C 30.90 ml [facility] LVOT mean grad 2.70 mmHg [facility] AoV area I VMN bsa 1.49 cm2/m2 [facility] LV SI Cube 2D 18.00 ml/m2 [facility] LV SV Cube 2D 28.43 ml [facility] LV vol d cube 2D 52.31 ml [facility] LV vol s cube 2D 23.89 ml [facility] LV Mass 160.00 (g) [facility] LA volume 40.7 cm3 [facility] TDI 7.0 [facility] LA Volume Index 25.76 mL/m2 [facility] Left Atrium Dimension 3.60 cm [facility] Anterior LA Area d A4C 31 cm2 [facility] Mitral Valve E' 7 m/s [facility] Mitral Valve E/E' 8.9 [facility] HR 66 bpm [facility] LV NV Mmode BSA 101.27 [facility] E/E' ratio 0.09 [facility] Narrative Performed At [facility] Normal left ventricular size and function with an EF~ 55% to 60% with mild left ventricular hypertrophy. Normal right ventricular size and function. Structurally normal cardiac valves. Normal atria. Normal pericardium with no effusion. Grade 1 diastolic dysfunction. Performing Organization Address City/State/Zipcode Phone Number [facility] [address] [place] [address] * CT Heart Scan Screen (08/17/2017) Narrative Performed At after 02/13/2017 Insurance Payer Benefit Subscriber ID Type Phone Address Plan / Group MEDICAID MEDICAID xxxxxxxxx Medicaid [facility] MEDICARE [facility] DUAL xxxxxxxxx O COMPLETE [facility]
--- OUTSIDE RECORDS SUMMARY | 2018-02-15 14:12 | XMS REPORT | Summary of Care ---
Author Author [facility] Address Unknown Phone Unavailable Encounter HQ Encntr_alias(FIN) [id number] Date(s): 12/25/15 - 01/23/16 [facility] Discharge Disposition: Home or Self Care Attending Physician: Imtiaz Mckeon MD Vital Signs No data available for this section Problem List Condition Effective Dates Status Health Status Informant HTN Resolved (hypertension)(Confi rmed) Hypothyroidism(Confi Resolved rmed) Allergies, Adverse Reactions, Alerts Substance Reaction Severity Status NKDA Active Medications No data available for this section Results No data available for this section Immunizations No data available for this section Procedures No data available for this section Social History Social History Type Response Smoking Status Never smoker; Exposure to Tobacco Smoke None; Cigarette Smoking Last 365 Days No; Reg Smoking Cessation Counseling No Assessment and Plan No data available for this section
--- OUTSIDE RECORDS SUMMARY | 2018-02-15 14:12 | XMS REPORT | Summary of Care ---
Author Organization Unknown Address Unknown Phone Unavailable Encounter HQ Trena(LEILA) [id number] Date(s): 08/25/14 - 08/25/14 [facility] [address] [place] [address]- Discharge Disposition: Home Physician Attending: Abhishek New MD Physician Admitting: Abhishek New MD Vital Signs 1 2 3 Most recent to oldest [Reference Range]: 152.4 cm (08/25/14 10:28 AM) Height 98 DegF (08/25/14 6:21 PM) 97.8 DegF (08/25/14 10:28 AM) Temperature Oral [96.4-99.1 DegF] 140/77 mmHg (08/25/14 6:21 PM) 158/71 mmHg *HI* (08/25/14 2:40 PM) 148/73 mmHg *HI* (08/25/14 12:28 PM) Blood Pressure [90-140/60-90 mmHg] 14 BRMIN (08/25/14 6:21 PM) 17 BRMIN (08/25/14 2:40 PM) 15 BRMIN (08/25/14 12:28 PM) Respiratory Rate [14-20 BRMIN] 74 bpm (08/25/14 10:28 AM) Peripheral Pulse Rate [60-100 bpm] 61.364 kg (08/25/14 10:28 AM) Weight 26.42 m2 (08/25/14 10:28 AM) Body Mass Index Problem List Condition Effective Dates Status Health Status Informant HTN Resolved (hypertension)(Confi rmed) Hypothyroidism(Confi Resolved rmed) Allergies, Adverse Reactions, Alerts Substance Reaction Severity Status NKDA Active Medications aspirin 324 mg, Route: PO, ONCE, Dosing Weight 61.364, kg, Priority: STAT, Start date: 0 08/25/14 10:56:00, Stop date: 08/25/14 10:56:00 Start Date: 08/25/14 Stop Date: 08/25/14 Status: Completed aspirin 325 mg tablet, enteric coated 325 mg, 1 tab, Route: PO, Drug form: ECTAB, Daily, Dosing Weight 61.364, kg, Sta rt date: 08/26/14 9:00:00, Duration: 30 day, Stop date: 09/24/14 9:00:00 Notes: (Do Not Crush) Do not crush or chew. Start Date: 08/26/14 Stop Date: 08/27/14 Status: Discontinued Benicar HCT 12.5 mg-20 mg oral tablet 1 tab, PO, Daily, # 30 tab, 0 Refill(s) Start Date: 08/25/14 Status: Ordered levothyroxine 75 mcg (0.075 mg) oral tablet 75 microgram=1 tab, PO, Daily, # 30 tab, 0 Refill(s) Start Date: 08/25/14 Status: Ordered lisinopril 5 mg, 1 tab, Route: PO, Drug form: TAB, Daily, Dosing Weight 61.364, kg, Start d ate: 08/26/14 9:00:00, Duration: 30 day, Stop date: 09/24/14 9:00:00 Notes: (Same as: Prinivil Zestril) Start Date: 08/26/14 Stop Date: 08/27/14 Status: Discontinued meclizine 25 mg, Route: PO, Drug form: TAB, ONCE, Dosing Weight 61.364, kg, Priority: STAT , Start date: 08/25/14 10:56:00, Stop date: 08/25/14 10:56:00 Start Date: 08/25/14 Stop Date: 08/25/14 Status: Completed morphine Sulfate 2 mg, 1 mL, Route: IVP, Drug form: INJ, Q15Min, Dosing Weight 61.364, kg, PRN Ch est Pain, Start date: 08/25/14 18:15:00, Duration: 2 doses or times, Stop date: Limited # of times Notes: (Same as:MORPhine Sulfate) Start Date: 08/25/14 Stop Date: 08/27/14 Status: Discontinued nitroglycerin SL Tab 0.4 mg, 1 tab, Route: SL, Drug form: TAB, Q5Min, Dosing Weight 61.364, kg, PRN C hest Pain, Start date: 08/25/14 18:15:00, Duration: 3 doses or times, Stop date: Limited # of times Notes: (Same as:Nitroquick, Nitrostat)"Do Not Crush" Sublingual tablet Start Date: 08/25/14 Stop Date: 08/27/14 Status: Discontinued ondansetron 4 mg, 1 tab, Route: PO, Drug form: TAB, Q8H, Dosing Weight 61.364, kg, PRN Nause a & Vomiting, Start date: 08/25/14 18:15:00, Duration: 30 day, Stop date: 09/24/14 18:14:00 Notes: (Same as: Zofran) Start Date: 08/25/14 Stop Date: 08/27/14 Status: Discontinued predniSONE 20 mg, Route: PO, Drug form: TAB, ONCE, Dosing Weight 61.364, kg, Priority: STAT , Start date: 08/25/14 10:57:00, Stop date: 08/25/14 10:57:00 Start Date: 08/25/14 Stop Date: 08/25/14 Status: Completed Saline Flush 0.9% 10 mL, Route: IVP, Drug Form: INJ, Dosing Weight 61.364, kg, PRN, PRN Line Flush , Start date: 08/25/14 10:56:00, Duration: 30 day, Stop date: 09/24/14 10:55:00 Notes: Same as: BD Posiflush Sterile Start Date: 08/25/14 Stop Date: 08/27/14 Status: Discontinued Saline Flush 0.9% 10 ml, Route: IVP, Drug Form: INJ, Dosing Weight 61.364, kg, PRN, PRN Line Flush , Start date: 08/25/14 18:15:00, Duration: 30 day, Stop date: 09/24/14 18:14:00 Notes: (Same as: BD Posiflush) Start Date: 08/25/14 Stop Date: 08/27/14 Status: Discontinued Saline Flush 0.9% 10 ml, Route: IVP, Drug Form: INJ, Dosing Weight 61.364, kg, Q12H, Start date: 0 08/25/14 21:00:00, Duration: 30 day, Stop date: 09/24/14 9:00:00 Notes: (Same as: BD Posiflush) Start Date: 08/25/14 Stop Date: 08/27/14 Status: Discontinued Results ELECTROLYTES Most recent to 1 2 oldest [Reference Range]: Sodium Lvl [135-145 136 mEq/L mEq/L] (08/25/14 11:11 AM) Potassium Lvl 3.8 mEq/L [3.5-5.1 mEq/L] (08/25/14 11:11 AM) Chloride Lvl [95-109 104 mEq/L mEq/L] (08/25/14 11:11 AM) CO2 [24-32 mEq/L] 27 mEq/L (08/25/14 11:11 AM) AGAP [10.0-20.0 8.8 mEq/L mEq/L] *LOW* (08/25/14 11:11 AM) CHEM PANEL Most recent to 1 2 oldest [Reference Range]: Creatinine Lvl 0.7 mg/dL [0.5-1.4 mg/dL] (08/25/14 11:11 AM) eGFR 88 mL/min/1.73m2 1 *NA* (08/25/14 11:11 AM) BUN [7-22 mg/dL] 14 mg/dL (08/25/14 11:11 AM) B/C Ratio [6-25] 20 (08/25/14 11:11 AM) Glucose Lvl [70-99 101 mg/dL 2 mg/dL] *HI* (08/25/14 11:11 AM) Total Protein 7.8 g/dL [6.4-8.4 g/dL] (08/25/14 11:11 AM) Albumin Lvl [3.5-5.0 3.8 g/dL g/dL] (08/25/14 11:11 AM) Globulin [2.0-4.0 4.0 g/dL g/dL] (08/25/14 11:11 AM) A/G Ratio [0.7-1.6] 1.0 (08/25/14 11:11 AM) Calcium Lvl 9.4 mg/dL [8.5-10.5 mg/dL] (08/25/14 11:11 AM) Phosphorus [2.5-4.5 1.9 mg/dL mg/dL] *LOW* (08/25/14:11 AM) Magnesium Lvl 2.4 mg/dL [1.8-2.4 mg/dL] (08/25/14 11:11 AM) ALT [0-65 unit/L] 27 unit/L (08/25/14 11:11 AM) AST [0-37 unit/L] 20 unit/L (08/25/14 11:11 AM) Alk Phos [39-136 100 unit/L unit/L] (08/25/14 11:11 AM) Bili Total [0.2-1.3 1.2 mg/dL mg/dL] (08/25/14 11:11 AM) 1Result Comment: The eGFR is calculated using [...] from the National Kidney Disease Education Program ( NKDEP) which additionally recommends that when the eGFR is used in patients with extremes of body mass index for purposes of drug dosing, the eGFR should be mul tiplied by the estimated BMI. 2Interpretive Data: Adult reference range values reflect the clinical guidelines of the [place] [employer]. CARDIAC ENZYMES Most recent to 1 2 oldest [Reference Range]: Total CK [12-191 78 unit/L unit/L] (08/25/14 11:11 AM) CK MB [0.5-3.6 0.6 ng/mL 1.2 ng/mL ng/mL] (08/25/14 5:20 PM) (08/25/14 11:11 AM) CK MB Index 1.5 [0.0-2.5] (08/25/14 11:11 AM) Troponin-I <0.02 ng/mL <0.02 ng/mL [0.00-0.40 ng/mL] (08/25/14 5:20 PM) (08/25/14 11:11 AM) BNP [<=100 pg/mL] 46 pg/mL 3 (08/25/14 11: AM) 3Interpretive Data: Elevated results are in line with increasing severity of congestive heart failure. Minor elevations between 100 and 300 may be seen with Myocardial Ischemia, Sodium retaining drugs, and compensated/treated heart failure. URINE AND STOOL Most recent to 1 2 oldest [Reference Range]: UA Turbidity [Clear] Clear (08/25/14: AM) UA Color Colorless *NA* (08/25/14: AM) UA pH [5.0-8.0] 6.0 (08/25/14 AM) UA Spec Grav 1.003 [<=1.030] (08/25/14: AM) UA Glucose [Negative Negative mg/dL mg/dL] *NA* (08/25/14: AM) UA Blood [Negative] Negative (08/25/14: AM) UA Ketones [Negative Negative mg/dL mg/dL] *NA* (08/25/14 11: AM) UA Protein [Negative Negative mg/dL mg/dL] (08/25/14: AM) UA Urobilinogen <=1.0 mg/dL [0.1-1.0 mg/dL] *NA* (08/25/14 11: AM) UA Bili [Negative] Negative *NA* (08/25/14 11: AM) UA Leuk Est Trace [Negative] *ABN* (08/25/14: AM) UA Nitrite Negative [Negative] (08/25/14 11: AM) UA WBC [0-5 /HPF] 1 /HPF (08/25/14 11: AM) UA RBC [0-2 /HPF] <1 /HPF (08/25/14: AM) UA Bacteria [None Occasional /HPF Seen /HPF] *NA* (08/25/14 11: AM) UA Sq Epi [Few /LPF] Occasional /LPF *NA* (08/25/14 11: AM) HEMATOLOGY Most recent to 1 2 oldest [Reference Range]: WBC [3.7-10.4 K/CMM] 8.8 K/CMM (08/25/14 11:11 AM) RBC [4.20-5.40 4.65 M/CMM M/CMM] (08/25/14 11:11 AM) Hgb [12.0-16.0 g/dL] 14.9 g/dL (08/25/14:11 AM) Hct [36.0-48.0 %] 43.7 % (08/25/14:11 AM) MCV [80.0-98.0 fL] 94.1 fL (08/25/14 11:11 AM) MCH [27.0-31.0 pg] 32.1 pg *HI* (08/25/1411 AM) MCHC [32.0-36.0 34.1 g/dL g/dL] (08/25/14:11 AM) RDW [11.5-14.5 %] 13.8 % (08/25/14 11:11 AM) Platelet [133-450 232 K/CMM K/CMM] (08/25/14:11 AM) MPV [7.4-10.4 fL] 9.3 fL (08/25/14 11:11 AM) Segs [45.0-75.0 %] 72.1 % (08/25/14 11:11 AM) Lymphocytes 21.4 % [20.0-40.0 %] (08/25/14 11:11 AM) Monocytes [2.0-12.0 4.9 % %] (08/25/14 11:11 AM) Eosinophils [0.0-4.0 0.7 % %] (08/25/14 11:11 AM) Basophils [0.0-1.0 0.9 % %] (08/25/14 11:11 AM) Segs-Bands # 6.3 K/CMM [1.5-8.1 K/CMM] (08/25/14 11:11 AM) Lymphocytes # 1.9 K/CMM [1.0-5.5 K/CMM] (08/25/14 11:11 AM) Monocytes # [0.0-0.8 0.4 K/CMM K/CMM] (08/25/14 11:11 AM) Eosinophils # 0.1 K/CMM [0.0-0.5 K/CMM] (08/25/14 11:11 AM) Basophils # [0.0-0.2 0.1 K/CMM K/CMM] (08/25/14 11:11 AM) PT [12.0-14.7 12.8 seconds seconds] (08/25/14 11:11 AM) INR [0.85-1.17] 0.96 4 (08/25/14 11:11 AM) PTT [22.9-35.8 34.8 seconds 5 seconds] (08/25/14 11:11 AM) 4Interpretive Data: RECOMMENDED RANGES FOR PROTIME INR: 2.0-3.0 for most medical and surgical thromboembolic states. 2.5-3.5 for artificial heart valves and recurrent embolism. INR SHOULD BE USED ONLY FOR PATIENTS ON STABLE ANTICOAGULANT THERAPY. 5Interpretive Data: Heparin Therapeutic Range: 57 - 92 Seconds Immunizations No data available for this section Procedures No data available for this section Social History Social History Type Response Smoking Status Never smoker; Exposure to Tobacco Smoke None; Cigarette Smoking Last 365 Days No; Reg Smoking Cessation Counseling No Assessment and Plan No data available for this section
--- OUTSIDE RECORDS SUMMARY | 2018-02-15 14:12 | XMS REPORT ---
Author [facility] Address Unknown Phone Unavailable Care Team Providers Care Destination Sign Repairer Name Role Phone Sabrina PLASCENCIA Unavailable Unavailable Karan MARSHALL Unavailable Unavailable Problems This patient has no known problems. Allergies, Adverse Reactions, Alerts This patient has no known allergies or adverse reactions. Medications This patient has no known medications. Results Test Description Test Time Test Comments Text Results Atomic Results Result Comments CHEST 2 VIEWS 2018-02-11 11:06:00 [place] [address] Patient Name: BRENT HADDAD MR #: [id number] : 1945 Age/Sex: 72/F Req #: [id number] Adm Physician: Ordered by: ELODIA PLASCENCIA MD Report #: [id number] Location: OR Room/Bed: Procedure: [id number] DX/CHEST 2 VIEWS Exam Date: 02/11/18 Exam Time: 1030 REPORT STATUS: Signed EXAMINATION: PA and lateral views of the chest. COMPARISON: None CLINICAL HISTORY: Preoperative, hernia DISCUSSION: Lines/tubes: None. Lungs: The lungs are well inflated and clear. No pneumonia or pulmonary edema. Pleura: No pleural effusion or pneumothorax. Heart and mediastinum: The cardiomediastinal silhouette is normal. Bones and soft tissues: No acute bony abnormalities. IMPRESSION: No acute cardiopulmonary abnormalities. Signed by: Dr. Sunny Zaragoza M.D. on 02/11/2018 11:08 AM Dictated By: SUNNY ZARAGOZA MD 07 Transcribed By: JENNIFER on 02/11/181107 COPY TO: ELODIA PLASCENCIA MD I BLEED 2017-10-20 16:47:00 [place] [address] Patient Name: BRENT HADDAD MR #: [id number] : 1945 Age/Sex: 72/F Req #: [id number] Adm Physician: BEN MARSHALL MD Ordered by: TOBIN BEE MD Report #: [id number] Location: [facility] Room/Bed: [facility] Procedure: [id number] NM/G I BLEED Exam Date: Exam Time: REPORT STATUS: Signed Tagged-RBC GI Bleed Study Clinical information: 72-year-old female with rectal bleeding/blood in stool. Discussion: The patient's own red blood cells were labeled with 27.5 mCi of technetium-99m pertechnetate using the in vitro method ([employer]). Dynamic images of the abdomen were obtained through 60 minutes. Distribution of tracer activity appears physiologic throughout the abdomen. No abnormal accumulation of tracer is seen within the gastrointestinal lumen. Impression: No scan evidence of active gastrointestinal bleeding at this time. Signed by: Dr. Laurent Rivera M.D. on 10/20/2017 4:48 PM Dictated By: LAURENT RIVERA MD Transcribed By: JENNIFER on 10/20/171647 COPY TO: TOBIN BEE MD
== END | disposition home or self-care (01) ==
LOC: OR 05:20
PROVIDERS: ATTEND Surgery
DX: K43.6 Other and unspecified ventral hernia with obstruction, without gangrene (principal); I10 Essential (primary) hypertension; E03.9 Hypothyroidism, unspecified; K21.9 Gastro-esophageal reflux disease without esophagitis; R00.1 Bradycardia, unspecified; I44.7 Left bundle-branch block, unspecified; Z01.810 Encounter for preprocedural cardiovascular examination; Z01.812 Encounter for preprocedural laboratory examination; Z01.818 Encounter for other preprocedural examination; Z88.6 Allergy status to analgesic agent
CPT/HCPCS: 36415; 49561; 49568; 71046; 80048; 85025; 88304; 93005; C1781; J0690; J1100; J2001; J2250; J2405; J3490